=== PATIENT | female | born 1995 | race Caucasian/White ===

== ENCOUNTER 2020-04-27 02:26 | Emergency (ER) | payer BC, OTHER ==
[2020-04-27] MEDS: GI Cocktail Oral Solution 30 ML PO ONE (02:52)
--- NOTE | 2020-04-27 03:01 | EDM.PDOC ---
ED HPI GENERAL MEDICAL PROBLEM - General Chief Complaint: Chest Pain Stated Complaint: Chest Pain Time Seen by Provider: 04/27/20 02:40 Source of Information: Reports: Patient History Limitations: Reports: No Limitations - History of Present Illness INITIAL COMMENTS - FREE TEXT/NARRATIVE: Patient comes into the emergency department with elevated blood pressure as well as midsternal discomfort. Patient states that she started developing midsternal discomfort approximately 1 to 2 hours after she ate some spicy sausage. She also states that she does have a longstanding history of hypertension and is on the labetalol to help manage that. Patient did recently have a baby approximately 3 weeks ago. Patient denies feeling short of breath, dizzy, lightheaded, diaphoretic, nauseated, abdominal pain, or peripheral edema. Patient states that when she does get anxious or worked up she does notice that her blood pressure does tend to elevate a little bit more. Patient states that the midsternal chest discomfort is reproducible by pressing midsternal and is a burning sensation in the midsternal area. It does not radiate to the jaw or change in characteristics with deep breaths. She also denies any increase in swelling or bleeding. Patient was hospitalized for approximately 6 days for she went into labor and ended up needing to have a . She states that her hemoglobin was low however it had risen prior to discharge and she has had no bleeding episodes since then. Patient also denies having any signs and symptoms of internal or external bleeding/hemorrhaging. States that she has felt relatively healthy and has been taking her blood pressure daily at a consistent time. The daily blood pressure has been within normal limits about her PCP would recommend. However tonight after she began to have the burning sensation in her chest she states that she took her blood pressure to see and had noticed that her diastolic number was in the 90s and then when she rechecked it it was 102 diastolic. Her systolic number has remained in the 160s Onset: Sudden Severity: Mild Improves with: Reports: Cold Therapy (did notice some improvement with cold water drink ) Associated Symptoms: Denies: Chest Pain, Diaphoresis, Fever/Chills, Malaise, Nausea/Vomiting, Syncope, Weakness - Related Data Allergies Allergy/AdvReac Type Severity Reaction Status Date / Time No Known Allergies Allergy Verified 04/27/20 02:45 Home Meds: Home Meds Labetalol HCl [Labetalol] 200 mg PO BID 04/27/20 [History] ED ROS GENERAL - Review of Systems Review Of Systems: See Below Constitutional: Reports: No Symptoms HEENT: Reports: No Symptoms Respiratory: Reports: No Symptoms Cardiovascular: Reports: No Symptoms Endocrine: Reports: No Symptoms GI/Abdominal: Reports: No Symptoms : Reports: No Symptoms Musculoskeletal: Reports: No Symptoms Skin: Reports: No Symptoms Neurological: Reports: No Symptoms Psychiatric: Reports: No Symptoms Hematologic/Lymphatic: Reports: No Symptoms Immunologic: Reports: No Symptoms ED EXAM, GENERAL - Physical Exam Exam: See Below Exam Limited By: No Limitations General Appearance: Alert, WD/WN, No Apparent Distress Head: Atraumatic, Normocephalic Neck: Normal Inspection, Supple, Non-Tender Respiratory/Chest: No Respiratory Distress, Lungs Clear, Normal Breath Sounds, No Accessory Muscle Use, Chest Non-Tender, Other (tenderness over mid sternal- burning sensation, no radiation ) Cardiovascular: Normal Peripheral Pulses, Regular Rate, Rhythm GI/Abdominal: Normal Bowel Sounds, Soft, Non-Tender Back Exam: Normal Inspection, Full Range of Motion Extremities: Normal Inspection, Normal Range of Motion, Non-Tender, Normal Capillary Refill Neurological: Alert, Oriented, Normal Gait Psychiatric: Normal Affect, Normal Mood Skin Exam: Warm, Dry, Intact, Normal Color Course - Orders/Labs/Meds Meds: Medications Discontinued Medications Generic Name Dose Route Start Last Admin Trade Name Freq PRN Reason Stop Dose Admin Al Hydroxide/Mg Hydroxide 30 ml 04/27/20 02:47 Gi Cocktail PO 04/27/20 02:48 ONETIME ONE - Re-Assessments/Exams Free Text/Narrative Re-Assessment/Exam: 04/27/20 03:17 pt states she is pain free and has no further concerns and would like to be discharged home. She currently denies wanting any labs or imaging. Departure - Departure Time of Disposition: 03:20 Disposition: Home, Self-Care 01 Condition: Good Clinical Impression: Acid reflux disease Qualifiers: Esophagitis presence: without esophagitis Qualified Code(s): K21.9 - Gastro- esophageal reflux disease without esophagitis - Discharge Information *PRESCRIPTION DRUG MONITORING PROGRAM REVIEWED*: Not Applicable *COPY OF PRESCRIPTION DRUG MONITORING REPORT IN PATIENT KERRI: Not Applicable Instructions: Indigestion, [id number], Food Choices for Gastroesophageal Reflux Disease, Adult, [id number] Referrals: PCP,Not In Area [Primary Care Provider] - Additional Instructions: 1. rest 2. increase your water intake 3. Continue all at home medications 4. Activity and diet as tolerated 5. Can take over the counter Tylenol for any pain or discomfort 6. Can also use over the counter tums for acid indigestion 7. Follow up with PCP if symptoms continue, return, or progress- it is recommended to follow up with PCP within a week regarding blood pressure medication regiment. 8. Take blood pressure daily in the am about 15 minutes after waking up and relaxing. Record the data a present to your PCP 10. Return or call 911 for confusion, bleeding, blurred vision, Shortness of breath, and chest pain 11. Call with any questions or concerns - Assessment/Plan Assessment:: 1. GERD Plan: 1. GI cocktail- with relief 2. Did discuss patient will need a follow up with PCP to discuss current BP medications regiment and potential changes needed 3. Educated regarding taking BP daily in the am after waking up and relaxing for 15 mins and write down results until being seen by PCP 4. Patient denies wanting any further imaging or testing tonight for she feels better with GI cocktail. education regarding other sxs and to return and possible adverse effects that can result after delivery of a baby 5. Patient and nursing staff was updated regarding the plan of care 6. Education provided the patient regarding activity, diet, rest, over-the- counter medication modalities, and follow-up care was provided 7. Patient and family are agreeable to the above plan of care 8. All questions and concerns were addressed with the patient and family prior to discharge
== END 2020-04-27 03:27 | disposition home or self-care (01) ==
LOC: VM.ED 02:26
DX: K21.9 Gastro-esophageal reflux disease without esophagitis (principal); I10 Essential (primary) hypertension
CPT/HCPCS: 93005; 99284-25; A9270-GY